=== PATIENT | male | born 1975 | race Caucasian/White ===

== ENCOUNTER 2020-10-27 06:02 | Day surgery (SDC) | payer OTHER ==
[~2020-10-27] VITALS: Ht 185.4 cm; Wt 100.4 kg
[~2020-10-27 06:02] MED LIST: ALBU8.5H8 INH
[2020-10-27] MEDS ORDERED: EPINEPHRINE 1 MG/ML, 1ML ONE (06:19)
[2020-10-27] MEDS ORDERED: BUPIVACAINE/PF 0.5% ONE (06:19)
[2020-10-27 06:25] VITALS: BP 136/82
[2020-10-27] MEDS ORDERED: CHLORHEXIDINE 15 ML UDC PO ONE (06:30)
[2020-10-27] MEDS ORDERED: LACTATED RINGERS 1,000 ML IV SCH (06:30)
[2020-10-27] MEDS ORDERED: MIDAZOLAM 1 MG/ML, 2ML ONE (07:10)
[2020-10-27] MEDS ORDERED: FENTANYL PF 100 MCG/2ML ONE ×3 (07:10→08:31)
[2020-10-27] MEDS ORDERED: MEPERIDINE/PF 25MG/0.5ML IVPush PRN (07:30)
[2020-10-27] MEDS ORDERED: HYDROmorphone 1 MG/ML, 1ML INJ IVPush PRN (07:30)
[2020-10-27] MEDS ORDERED: hydrALAzine 20 MG/ML, 1ML IV PRN (07:30)
[2020-10-27] MEDS ORDERED: PROMETHAZINE 25 MG/ML, 1ML IVPush PRN (07:30)
[2020-10-27] MEDS ORDERED: ACETAMINOPHEN 325 MG TABLET PO PRN (07:30)
[2020-10-27] MEDS ORDERED: ONDANSETRON 2MG/ML, 2ML IVPush PRN (07:30)
[2020-10-27] MEDS ORDERED: EPHEDRINE 50 MG/ML, 1ML IVPush PRN (07:30)
[2020-10-27] MEDS ORDERED: LABETALOL 5MG/ML, 20ML IV PRN (07:30)
[2020-10-27] MEDS ORDERED: OXYcodone 5 MG/5 ML ORAL.SOL UDC PO PRN (07:30)
[2020-10-27] MEDS ORDERED: LIDOCAINE-MPF 2% ,5ML ONE (07:32)
[2020-10-27] MEDS ORDERED: KETOROLAC 30 MG/1 ML ONE (07:32)
[2020-10-27] MEDS ORDERED: CEFOTETAN 2 GM ONE (07:38)
[2020-10-27] MEDS ORDERED: PROPOFOL 10 MG/ML, 20ML ONE (07:48)
[2020-10-27] MEDS ORDERED: ONDANSETRON 2MG/ML, 2ML ONE (07:48)
[2020-10-27] MEDS ORDERED: SUCCINYLCHOLINE 20 MG/ML, 10ML ONE (07:48)
[2020-10-27] MEDS ORDERED: DEXAMETHASONE 4 MG/ML, 1ML ONE (07:48)
[2020-10-27] MEDS ORDERED: ACETAMINOPHEN 650 MG/20.3 ML UDC ONE (08:31)
[2020-10-27] MEDS ORDERED: OXYcodone 5 MG/5 ML ORAL.SOL UDC ONE (08:32)
[2020-10-27] MEDS: FENTANYL PF 100 MCG/2ML IV PRN ×2 (08:37→08:53)
== END 2020-10-27 09:55 | disposition home or self-care (01) ==
LOC: OUT 06:02
PROVIDERS: ATTEND Colon & Rectal Surgery
DX: K60.3 Anal fistula (principal); J45.909 Unspecified asthma, uncomplicated; Z20.822 Contact with and (suspected) exposure to COVID-19; Z79.899 Other long term (current) drug therapy; Z88.8 Allergy status to other drugs, medicaments and biological substances
CPT/HCPCS: 46275; J0171; J0330; J1100; J1885; J2250; J2405; J2704; J3010; J7120; U0003; U0005